=== PATIENT | male | born 1980 | race Caucasian/White ===

== ENCOUNTER 2017-01-21 19:34 | Emergency (ER) | payer OTHER ==
--- NOTE | 2017-01-21 19:36 | EDPHY ---
H & P Time Seen by Provider: 01/21/17 19:35 HPI/ROS: CHIEF COMPLAINT: Sharp subxiphoid pain resolved HISTORY OF PRESENT ILLNESS: The patient presents the ED after he developed an episode of sharp subxiphoid pain while working. The patient reports an old history of a chest wall injury 1 month ago. He was doing a bench press yesterday and exacerbated his chest wall symptoms. The patient was concerned about his symptoms today secondary to a very strong family history of coronary artery disease. The patient did have an echocardiogram performed approximately 3 years ago which was normal. The patient runs avidly. He tries to run 20 miles a week and has no complaints of chest pain or shortness of breath with running. The patient is currently asymptomatic. The patient denies any fever, cough or congestion. The patient denies any pleuritic chest pain. He denies asymmetric calf pain or swelling. REVIEW OF SYSTEMS: A comprehensive 10 point review of systems is otherwise negative aside from elements mentioned in the history of present illness. Source: Patient Exam Limitations: No limitations - Medical/Surgical History Other PMH: Past medical history: Gastroesophageal reflux disease - Family History Significant Family History: Heart disease - Social History Smoking Status: Never smoked Alcohol Use: None - Physical Exam Exam: General Appearance: Alert, no distress Eyes: Pupils equal and round no pallor or injection ENT, Mouth: Mucous membranes moist Respiratory: Minimal tenderness to palpation over the xiphoid, no subcutaneous emphysema, lungs clear to auscultation bilaterally Cardiovascular: Regular rate and rhythm Gastrointestinal: Abdomen is soft and nontender, no masses, bowel sounds normal Neurological: A&O, normal motor function, normal sensory exam, normal cranial nerves Skin: Warm and dry, no rashes Musculoskeletal: Neck is supple nontender Extremities: symmetrical, full range of motion Constitutional: Initial Vital Signs Temperature (C) 36.7 C 01/21/17 19:45 Heart Rate 62 01/21/17 19:45 Respiratory Rate 16 01/21/17 19:45 Blood Pressure 134/83 H 01/21/17 19:45 O2 Sat (%) 96 01/21/17 19:45 O2 Delivery Mode Room Air Allergies/Adverse Reactions: No Known Allergies Allergy (Unverified 01/21/17 19:45) Home Medications: Medication Instructions Recorded NK [No Known Home Meds] 01/21/17 Medical Decision Making - Diagnostics EKG Interpretation: EKG: Complete interpretation has been separately recorded in the [facility] archive. Summary impression: Sinus rhythm, no ischemic changes Imaging Results: Imaging Impressions Chest X-Ray 01/21/17 19:58 IMPRESSION: No evidence for acute cardiopulmonary abnormality. Imaging: I viewed and interpreted images myself ED Course/Re-evaluation: The patient presents to the ED after a 1 hour episode of atypical chest pain. The patient does have significant family history of coronary artery disease. The patient himself has no history of exertional chest pain or shortness of breath despite running 20 miles a week. The patient's vital signs are stable upon arrival. The patient experienced chest pain approximately 2 hours prior to arrival. It lasted for approximately 45 minutes. The patient's abdominal examination is benign. His EKG demonstrates no evidence of acute ischemia. Given his history of remote chest trauma a chest x-ray was ordered. Differential Diagnosis: Differential diagnosis considered includes costochondritis, myofascial strain, gastroesophageal reflux, acute coronary syndrome, rib fracture, pneumothorax - Data Points Laboratory Results: Laboratory Results 01/21/17 19:35 01/21/17 19:35 01/21/17 01/21/17 19:35 19:35 WBC 8.80 10^3/uL 10^3/uL (3.80-9.50) RBC 4.77 10^6/uL 10^6/uL (4.40-6.38) Hgb 14.1 g/dL g/dL (13.7-17.5) Hct 41.5 % % (40.0-51.0) MCV 87.0 fL fL (81.5-99.8) MCH 29.6 pg pg (27.9-34.1) MCHC 34.0 g/dL g/dL (32.4-36.7) RDW 12.9 % % (11.5-15.2) Plt Count 234 10^3/uL 10^3/uL (150-400) MPV 11.1 fL fL (8.7-11.7) Neut % (Auto) 65.7 % % (39.3-74.2) Lymph % (Auto) 27.2 % % (15.0-45.0) [place] % (Auto) 5.5 % % (4.5-13.0) Eos % (Auto) 1.0 % % (0.6-7.6) Baso % (Auto) 0.5 % % (0.3-1.7) Nucleat RBC Rel Count 0.0 % % (0.0-0.2) Absolute Neuts (auto) 5.79 10^3/uL 10^3/uL (1.70-6.50) Absolute Lymphs (auto) 2.39 10^3/uL 10^3/uL (1.00-3.00) Absolute Monos (auto) 0.48 10^3/uL 10^3/uL (0.30-0.80) Absolute Eos (auto) 0.09 10^3/uL 10^3/uL (0.03-0.40) Absolute Basos (auto) 0.04 10^3/uL 10^3/uL (0.02-0.10) Absolute Nucleated RBC 0.00 10^3/uL 10^3/uL (0-0.01) Immature Gran % 0.1 % % (0.0-1.1) Immature Gran # 0.01 10^3/uL 10^3/uL (0.00-0.10) Sodium 137 mEq/L mEq/L (134-144) Potassium 4.1 mEq/L mEq/L (3.5-5.2) Chloride 98 mEq/L mEq/L (97-110) Carbon Dioxide 26 mEq/l mEq/l (22-31) Anion Gap 13 mEq/L mEq/L (8-16) BUN 11 mg/dL mg/dL (7-23) Creatinine 1.0 mg/dL mg/dL (0.7-1.3) Estimated GFR > 60 Glucose 98 mg/dL mg/dL (70-100) Calcium 9.9 mg/dL mg/dL (8.5-10.4) Troponin I < 0.012 ng/mL ng/mL (0.000-0.034) Departure - Departure Disposition: Home, Routine, Self-Care Clinical Impression: Chest pain Condition: Good Instructions: Chest Pain (ED) Additional Instructions: 1. Based upon the testing done in the Emergency Department today we see no evidence of a heart attack. 2. We are unable to fully exclude coronary artery disease based upon the testing available in the Emergency Department. 3. For this reason, we would like you to be seen by cardiology for consideration of additional testing within the next 3 days. 4. Please contact the education spec you have been referred to schedule this appointment as soon as possible. Their offices are typically open from 8:30am- 5pm M-F. 5. Please return to the Emergency Department immediately for any recurrent chest pain, difficulty breathing or other concerns. Referrals: Arya Bateman MD [Medical Doctor] - As per Instructions
--- NOTE | 2017-01-21 19:45 | CPEKG ---
Heart Rate: 66 RR Interval: 909 P-R Interval: 148 QRSD Interval: 90 QT Interval: 404 QTC Interval: 424 P [place]: 68 QRS [place]: 43 T Wave [place]: 41 EKG Severity - NORMAL ECG - EKG Impression: SINUS RHYTHM Electronically Signed By: Adian Stallings 21-Jan-2017 20:35:56
[2017-01-21 19:47] VITALS: RESP 16; TEMP 98.1
[2017-01-21 20:02] LABS: % IMMATURE GRANULYOCYTES 0.1 % (0.0-1.1); ABSOLUTE IMMATURE GRANULOCYTES 0.01 10^3/uL (0.00-0.10); ADD DIFF? NO; ADD MORPH? NO; ADD SCAN? NO; ATYPICAL LYMPHOCYTE FLAG 0 (0-99); FRAGMENT RBC FLAG 0 (0-99); HEMATOCRIT 41.5 % (40.0-51.0); HEMOGLOBIN 14.1 g/dL (13.7-17.5); LEFT SHIFT FLG 0 (0-99); LIPEMIA HEMOLYSIS FLAG 90 (0-99); MEAN CELL HEMOGLOBIN 29.6 pg (27.9-34.1); MEAN PLATELET VOLUME 11.1 fL (8.7-11.7); PLATELET CLUMPS FLAG 20 (0-99); PLATELET COUNT 234 10^3/uL (150-400); RED BLOOD CELL COUNT 4.77 10^6/uL (4.40-6.38); RED CELL DISTRIBUTION WIDTH 12.9 % (11.5-15.2)
[2017-01-21 20:08] LABS: ANION GAP 13 mEq/L (8-16); CALCIUM 9.9 mg/dL (8.5-10.4); CARBON DIOXIDE 26 mEq/l (22-31); CHLORIDE 98 mEq/L (97-110); GLOMERULAR FILTRATION RATE > 60; GLUCOSE 98 mg/dL (70-100); POTASSIUM 4.1 mEq/L (3.5-5.2); SODIUM 137 mEq/L (134-144)
[2017-01-21 20:20] LABS: TROPONIN I < 0.012 ng/mL (0.000-0.034)
[2017-01-21 21:18] VITALS: BP 122/71; PULSE 71; O2SAT 97
== END 2017-01-21 21:18 | disposition home or self-care (01) ==
LOC: EDUNIT#
DX: R07.9 Chest pain, unspecified (principal)

== ENCOUNTER → 2017-04-09 | Outpatient (CLI) | payer OTHER | LOC: BMCIMAGING 07:25 | PROVIDERS: ATTEND Internal Medicine Cardiovascular Disease | DX: M79.604 Pain in right leg (principal) ==